=== PATIENT | male | born 1960 | race Caucasian/White ===

== ENCOUNTER → 2020-11-03 02:17 | Outpatient (CLI) | payer MEDICARE, SELFPAY ==
[2020-11-03 19:56] LABS: SARS-CoV-2 RNA PCR Negative
== END ==
PROVIDERS: PCP Internal Medicine; Visit Provider Internal Medicine Gastroenterology
DX: Z01.812 Encounter for preprocedural laboratory examination (principal); Z20.822 Contact with and (suspected) exposure to COVID-19
CPT/HCPCS: C9803; U0003; U0005

== ENCOUNTER 2020-11-06 03:26 | Day surgery (SDC) | payer MEDICARE, SELFPAY ==
[2020-10-26 10:27] VITALS: BMI 36.3
[2020-11-06 09:21] VITALS: BP 133/74; PULSE 58; RESP 18; TEMP 36.2; O2SAT 97; BMI 35.9
--- NOTE | 2020-11-06 09:29 | PM.HPGS ---
History of Present Illness History of Present Illness Consent: Risks, benefits, and alternatives have been discussed and questions answered. Patient agrees to proceed with procedure. Chief complaint: hx of colon polyps Narrative: Dana Marroquin is a 60 year old male referred for colon cancer screening. He has had polyps removed in the past Review of Systems Review of Systems: All systems reviewed & are unremarkable except as noted in HPI and below PMFSH Social History Social History Years smoked: 15 Smoking status: Former smoker Living arrangements: with family Gender identity (if verbalized by the patient): Male Meds Home Medications and Allergies Home Medications Medication Instructions Recorded Confirmed Type aspirin 81 mg PO DAILY 10/26/20 10/26/20 History carvedilol 12.5 mg PO BID 10/26/20 10/26/20 History ezetimibe 10 mg PO DAILY 10/26/20 10/26/20 History fenofibrate 160 mg PO DAILY 10/26/20 10/26/20 History furosemide 20 mg PO EVERY OTHER DAY 10/26/20 10/26/20 History lisinopril 10 mg PO BID 10/26/20 10/26/20 History metformin 500 mg PO BID 10/26/20 10/26/20 History multivit with min-folic acid 1 tablet PO DAILY 10/26/20 10/26/20 History [Adult One Daily Multivitamin] rosuvastatin 40 mg PO DAILY 10/26/20 10/26/20 History Allergies Allergy/AdvReac Type Severity Reaction Status Date / Time No Known Allergies Allergy Verified 11/06/20 09:19 Vital Signs Vital Signs - 24 hr 11/06/20 09:21 Temperature 36.2 C L Pulse Rate 58 L Respiratory Rate 18 Blood Pressure 133/74 Pulse Oximetry 97 Exam Resp: Auscultation: clear to auscultation bilaterally Cardio: Rate: regular rate Rhythm: regular rhythm GI: GI Palp: Yes Soft to palpation and No Tenderness to palpation present (GI) Assessment and Plan Assessment and plan (1) Colon cancer screening: Code(s): Z12.11 - Encounter for screening for malignant neoplasm of colon Status: Acute Assessment and Plan: Colonoscopy with possible biopsy or polypectomy or cautery or injection of substances.
[2020-11-06] MEDS: LACTATED RINGERS 1,000 ML 150 ML IV CONT (09:35)
[2020-11-06 09:37] LABS: Glucose Point of Care 114 mg/dl (65-105)
--- NOTE | 2020-11-06 09:51 | WPDANESEPPF ---
Anes - Initial Pre Proc Eval Procedure: Operation Date: 11/06/20 10:30 Proposed Procedures p Screening Colonoscopy - Issac Dyer MD Date/Time: 11/06/20 09:51 Surgeon: Issac Dyer MD Pre Op Diagnosis: hx of colon polyps Patient Data Age: 60 Gender: M Height: 6 ft 1 in Weight: 123.4 kg Last Vital Signs Temp 97.1 F L 11/06/20 09:21 Pulse 58 L 11/06/20 09:21 Resp 18 11/06/20 09:21 BP 133/74 11/06/20 09:21 Pulse Ox 97 11/06/20 09:21 Allergies Allergy/AdvReac Type Severity Reaction Status Date / Time No Known Allergies Allergy Verified 11/06/20 09:19 Home Medications Medication Instructions Recorded Confirmed Type aspirin 81 mg PO DAILY 10/26/20 10/26/20 History carvedilol 12.5 mg PO BID 10/26/20 10/26/20 History ezetimibe 10 mg PO DAILY 10/26/20 10/26/20 History fenofibrate 160 mg PO DAILY 10/26/20 10/26/20 History furosemide 20 mg PO EVERY OTHER DAY 10/26/20 10/26/20 History lisinopril 10 mg PO BID 10/26/20 10/26/20 History metformin 500 mg PO BID 10/26/20 10/26/20 History multivit with min-folic acid 1 tablet PO DAILY 10/26/20 10/26/20 History [Adult One Daily Multivitamin] rosuvastatin 40 mg PO DAILY 10/26/20 10/26/20 History Laboratory Tests 11/06/20 09:33 POC Capillary Glucose 114 mg/dl H mg/dl (65-105) Patient hx anesthesia problems: none Family hx anesthesia problems: none PMFSH Past Medical History Medical History (Updated 11/06/20 @ 09:47 by Prince Valerio MD) Diabetes 1.5, managed as type 2 Hyperlipidemia Hypertension CELIA (obstructive sleep apnea) Surgical History Surgical History (Updated 11/06/20 @ 09:47 by Prince Valerio MD) AICD (automatic cardioverter/defibrillator) present Social History Social History Years smoked: 15 Smoking status: Former smoker Living arrangements: with family Gender identity (if verbalized by the patient): Male Anes - Eval Final PreProcedure Day of Procedure 11/06/20 09:51 Patient weight: obese Heart: regular rate and rhythm Lungs: clear to auscultation Airway: Mallampati scale Neurological: alert and oriented Last oral intake: >/= 8 hours ASA classification: IV Emergent: no Anesthetic plan: proceed Anesthesia type and monitoring: general GIVS and standard monitoring Informed Consent: The patient's anesthetic plan and its attendant risks and benefits were discussed with the patient/family/POA. Questions were solicited and answers provided to the satisfaction of the patient/family/POA.
[2020-11-06] MEDS: SIMETHICONE ORAL SUSPENSION 20 MG/0.3 ML 30 ML BOTTLE 0.6 ML IRRIGATION (10:01)
[2020-11-06 10:10] VITALS: BP 115/70; PULSE 63; RESP 20; O2SAT 96
[2020-11-06 10:20] VITALS: BP 123/71; PULSE 56; RESP 25; O2SAT 95
[2020-11-06 10:30] VITALS: BP 130/83; PULSE 55; RESP 25; O2SAT 95
== END 2020-11-06 10:35 | disposition home or self-care (01) ==
PROVIDERS: PCP Internal Medicine; Visit Provider Internal Medicine Gastroenterology
PROC: 0DJD8ZZ Inspection of Lower Intestinal Tract, Via Natural or Artificial Opening Endoscopic (ICD-10-PCS; CPT 45378; principal; 2020-11-06 10:30)
DX: Z12.11 Encounter for screening for malignant neoplasm of colon (principal); Z86.010 Personal history of colon polyps; E11.9 Type 2 diabetes mellitus without complications; E78.5 Hyperlipidemia, unspecified; I10 Essential (primary) hypertension; G47.33 Obstructive sleep apnea (adult) (pediatric); Z87.891 Personal history of nicotine dependence
CPT/HCPCS: G0105; 82948; C9803; J2704; J7120; U0003; U0005